=== PATIENT | male | born 1990 | race Caucasian/White ===

== ENCOUNTER 2016-08-05 15:10 | Emergency (ER) | payer OTHER, BC ==
[2016-08-05 16:09] VITALS: BP 155/78
[2016-08-05] MEDS ORDERED: Ibuprofen TAB* 400 MG PO ONE (18:18)
[2016-08-05] MEDS ORDERED: Amoxicillin CAP* 500 MG PO ONE ×2 (18:36)
--- NOTE | 2016-08-09 06:31 | ED ---
Throat Pain/Nasal Congestion - HPI Summary HPI Summary: Pt here w/ ST x 2 days. Has had a sore in his mouth for a few weeks now, but throat is distinctly sore past couple of days w/ fever. Dysphagia but is able to handle secretions and breath w/o difficulty. H/o strep pharyngitis and this feels the same. Also son was recently dx'd w/ strep pharyngitis. Denies cough, sneezing, rash, ab pain, N/V/D. - History of Current Complaint Chief Complaint: UCRespiratory Time Seen by Provider: 08/05/16 18:05 Hx Obtained From: Patient - Allergies/Home Medications Allergies/Adverse Reactions: Allergies Allergy/AdvReac Type Severity Reaction Status Date / Time No Known Allergies Allergy Verified 08/05/16 16:09 PMH/Surg Hx/FS Hx/Imm Hx Previously Healthy: Yes Endocrine/Hematology History: Denies: Hx Anticoagulant Therapy, Hx Blood Disorders Respiratory History: Reports: Hx Asthma EENT History: Reports: Hx Tonsillitis - strep pharyngitis - Immunization History Immunizations Up to Date: Yes Infectious Disease History: No Infectious Disease History: Denies: Traveled Outside the [place] in Last 30 Days - Family History Known Family History: Negative: Blood Disorder - Social History Lives: With Family Alcohol Use: Rare Hx Substance Use: No Substance Use Type: Reports: None Hx Tobacco Use: No Smoking Status (MU): Never Smoked Tobacco Review of Systems Positive: Fever Negative: Drainage, Erythema Positive: Sore Throat - see HPI, Ear Ache - intermittent . Negative: Nasal Discharge Negative: Chest Pain Negative: Shortness Of Breath, Cough Gastrointestinal: Negative Positive: no symptoms reported Musculoskeletal: Negative Skin: Negative Neurological: Negative Psychological: Normal All Other Systems Reviewed And Are Negative: Yes Physical Exam Triage Information Reviewed: Yes Vital Signs On Initial Exam: Initial Vitals Temp Pulse Resp BP Pulse Ox 100.4 F 91 16 155/78 98 08/05/16 16:06 08/05/16 16:06 08/05/16 16:06 08/05/16 16:06 08/05/16 16:06 Vital Signs Reviewed: Yes Appearance: Positive: No Pain Distress, Well-Nourished, Ill-Appearing - appears mildly fatigued - sclera injected Skin: Positive: Warm, Dry - no rash Head/Face: Positive: Normal Head/Face Inspection - NTTP Eyes: Positive: EOMI. Negative: Discharge ENT: Positive: Hearing grossly normal, Pharyngeal erythema, Nasal congestion, TM red - Lt, Tonsillar swelling - Lt tonsil appears hemorrhagic - no active bleeding. Negative: Nasal drainage, TM bulging, Muffled/hoarse voice Neck: Positive: Tenderness @, Enlarged Nodes @ - Lt > Rt. Negative: Nuchal Rigidity Respiratory/Lung Sounds: Positive: Clear to Auscultation, Breath Sounds Present. Negative: Rales, Rhonchi, Stridor, Wheezes Cardiovascular: Positive: Normal, RRR Abdomen Description: Positive: Nontender, No Organomegaly, Soft Bowel Sounds: Positive: Present Musculoskeletal: Positive: Normal, Strength/ROM Intact Neurological: Positive: Normal, Sensory/Motor Intact, Alert, Oriented to Person Place, Time, CN Intact II-III Psychiatric: Positive: Normal Diagnostics - Vital Signs Vital Signs Temp Pulse Resp BP Pulse Ox 08/05/16 16:06 100.4 F 91 16 155/78 98 - Laboratory Lab Results: Lab Results 08/05/16 Range/Units 18:23 Group A Strep Rapid Positive H (Negative) Lab Statement: Any lab studies that have been ordered have been reviewed, and results considered in the medical decision making process. EENT Course/Dx - Diagnoses Provider Diagnoses: Strep pharyngitis Discharge - Discharge Plan Condition: Stable Disposition: HOME Prescriptions: Amoxicillin CAP* [Amoxicillin 500 MG CAP*] 500 mg PO Q12H #18 cap Patient Education Materials: Strep Throat (ED) Forms: *Work Release Referrals: Camryn Gray NP [Nurse Practitioner] - Additional Instructions: Salt water gargles Hot tea with honey Fluids Throat lozenges for pain Ibuprofen alternating with acetaminophen for pain/fever Follow-up with PCP if symptoms persist. *If you develop difficulty breathing or swallowing, go to ED
== END 2016-08-05 18:53 | disposition home or self-care (01) ==
LOC: UCEAST 15:10
DX: J02.0 Streptococcal pharyngitis (principal)
CPT/HCPCS: 87651; 99212; A9270-GY; G0463

== ENCOUNTER 2018-02-19 19:06 | Emergency (ER) | payer OTHER, BC ==
[2018-02-19 19:31] VITALS: BP 157/65
--- NOTE | 2018-02-19 20:21 | ED ---
Throat Pain/Nasal Congestion - HPI Summary HPI Summary: 27 yr old with sore throat. Onset 2 days ago. Pain is moderate, associated with white patches on tonsils. No drooling, no stridor. He has some bilateral ear pain as well. - History of Current Complaint Chief Complaint: UCRespiratory Time Seen by Provider: 02/19/18 19:57 - Allergies/Home Medications Allergies/Adverse Reactions: Allergies Allergy/AdvReac Type Severity Reaction Status Date / Time No Known Allergies Allergy Verified 02/19/18 19:28 PMH/Surg Hx/FS Hx/Imm Hx Endocrine/Hematology History: Denies: Hx Anticoagulant Therapy, Hx Blood Disorders Respiratory History: Reports: Hx Asthma Infectious Disease History: No Infectious Disease History: Denies: Traveled Outside the [place] in Last 30 Days - Family History Known Family History: Positive: None Negative: Blood Disorder - Social History Occupation: Employed Full-time Alcohol Use: Rare Hx Substance Use: No Substance Use Type: Reports: None Hx Tobacco Use: No Smoking Status (MU): Never Smoked Tobacco Review of Systems Constitutional: Negative Positive: Sore Throat, Ear Ache All Other Systems Reviewed And Are Negative: Yes Physical Exam Triage Information Reviewed: Yes Vital Signs On Initial Exam: Initial Vitals Temp Pulse Resp BP Pulse Ox 98.2 F 75 16 157/65 99 02/19/18 19:28 02/19/18 19:28 02/19/18 19:28 02/19/18 19:28 02/19/18 19:28 Vital Signs Reviewed: Yes Appearance: Positive: Well-Appearing, No Pain Distress Skin: Positive: Warm, Skin Color Reflects Adequate Perfusion Head/Face: Positive: Normal Head/Face Inspection Eyes: Positive: EOMI ENT: Positive: Pharyngeal erythema, TM red - left greater than right., Uvula midline Neck: Positive: Nontender Respiratory/Lung Sounds: Positive: Clear to Auscultation, Breath Sounds Present Cardiovascular: Positive: RRR. Negative: Murmur Abdomen Description: Positive: Nontender Musculoskeletal: Positive: Strength/ROM Intact Neurological: Positive: Sensory/Motor Intact, Alert, Oriented to Person Place, Time, CN Intact II-III, Normal Gait, Speech Normal Psychiatric: Positive: Normal - Benito Coma Scale Best Eye Response: 4 - Spontaneous Best Motor Response: 6 - Obeys Commands Best Verbal Response: 5 - Oriented Coma Scale Total: 15 Diagnostics - Vital Signs Vital Signs Temp Pulse Resp BP Pulse Ox 02/19/18 19:28 98.2 F 75 16 157/65 99 - Laboratory Lab Results: Lab Results 02/19/18 Range/Units 19:43 Group A Strep Rapid Negative (Negative) Lab Statement: Any lab studies that have been ordered have been reviewed, and results considered in the medical decision making process. EENT Course/Dx - Course Course Of Treatment: 27 yr old male with otitis media. Plan Cefdinir 300 mg BID. Plan DC home. - Diagnoses Provider Diagnoses: Otitis media, Pharyngitis Discharge - Sign-Out/Discharge Documenting (check all that apply): Patient Departure All imaging exams completed and their final reports reviewed: No Studies - Discharge Plan Condition: Good Disposition: HOME Prescriptions: Cefdinir cap (NF) [Cefdinir 300 MG cap (NF)] 300 mg PO BID #20 cap Patient Education Materials: Hypertension (ED), Ear Infection (ED) Referrals: No Primary Care Phys,NOPCP [Primary Care Provider] - [facility] [place] [facility] REFERRAL [Outside] - Billing Disposition and Condition Condition: GOOD Disposition: Home
== END 2018-02-19 20:26 | disposition home or self-care (01) ==
LOC: UCCORT 19:06
DX: H66.93 Otitis media, unspecified, bilateral (principal); J02.9 Acute pharyngitis, unspecified
CPT/HCPCS: 87651; 99212; G0463